=== PATIENT | female | born 1945 | race Caucasian/White ===

== ENCOUNTER → 2016-10-28 | Outpatient (CLI) | payer OTHER ==
--- NOTE | 2016-10-28 21:52 | DX ---
Sacrum and Coccyx - Three Views, at 2116 hours Indication: Pain. Fell on coccygeal area. Findings: The lateral view reveals an apical fracture of the low sacrum near the sacrococcygeal junc tion. The fracture plane is not well defined on the AP views. The arcuate lines of the bilateral sa cral foramina are preserved. No disruption of the pelvic ring. 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 Impression: Acute buckle fracture of the lower sacrum near the sacrococcygeal junction. Comment: The results were discussed with Dr. Alina Cummings shortly after study completion.
== END ==
LOC: FIMAGING 21:19
PROVIDERS: ATTEND Family Medicine
DX: S30.0XXA Contusion of lower back and pelvis, initial encounter (principal); S32.19XA Other fracture of sacrum, initial encounter for closed fracture; W19.XXXA Unspecified fall, initial encounter

== ENCOUNTER → 2017-05-04 | Outpatient (CLI) | payer OTHER | LOC: FIMAGING 12:33 | PROVIDERS: ATTEND Family Medicine | DX: Z12.31 Encounter for screening mammogram for malignant neoplasm of breast (principal); Z85.3 Personal history of malignant neoplasm of breast; Z80.3 Family history of malignant neoplasm of breast | CPT/HCPCS: G0202 ==

== ENCOUNTER → 2017-10-16 | Outpatient (CLI) | payer OTHER | LOC: FIMAGING 14:30 | DX: Z13.6 Encounter for screening for cardiovascular disorders (principal); Z82.49 Family history of ischemic heart disease and other diseases of the circulatory system ==

== ENCOUNTER → 2018-10-10 | Outpatient (CLI) | payer OTHER | LOC: FIMAGING 16:41 | PROVIDERS: ATTEND Family Medicine | DX: S92.352A Displaced fracture of fifth metatarsal bone, left foot, initial encounter for closed fracture (principal) ==